=== PATIENT | female | born 1985 | race Caucasian/White ===

== ENCOUNTER 2017-06-14 13:52 | Inpatient (IN) | payer SELFPAY ==
[2017-06-14 15:01] LABS: ADD MAN DIFF? NO
[2017-06-14] MEDS: IV NORMAL SALINE 1000ML BAG 1,000 ML IV ×2 (15:03→19:28)
[2017-06-14] MEDS: ONDANSETRON PF 4 MG/2 ML VIAL. IV ×2 (15:04→21:04)
[2017-06-14] MEDS: fentaNYL PF VIAL 100 MCG/2 ML VIAL IV ×5 (15:04→19:28)
[2017-06-14 15:06] LABS: BASO % 0 % (0-3); EOS # 0.2 x10^3/uL (0.0-0.7); EOS % 2 % (0-3); HEMATOCRIT 45.6 % (36.0-47.0); HEMOGLOBIN 15.5 g/dL (12.0-15.5); LYMPH # 1.9 x10^3/uL (1.0-4.8); LYMPH % 16 % (24-48); MEAN CORPUSCULAR HEMOGLOBIN 29 pg (25-35); MEAN CORPUSCULAR HGB CONC 34 g/dL (31-37); MEAN CORPUSCULAR VOLUME 86 fL (79-100); MONO # 1.2 x10^3/uL (0.0-1.1); MONO % 10 % (0-9); NEUT # 8.7 x10^3uL (1.8-7.7); NEUT % 72 % (31-73); PLATELET COUNT 274 x10^3/uL (140-400); RED BLOOD COUNT 5.33 x10^6/uL (3.50-5.40); RED CELL DISTRIBUTION WIDTH 12.8 % (11.5-14.5)
[2017-06-14 15:13] LABS: ANION GAP 9 (6-14); BLOOD UREA NITROGEN 11 mg/dL (7-20); BUN/CREATININE RATIO 12 (6-20); CALCIUM 9.8 mg/dL (8.5-10.1); CARBON DIOXIDE 27 mmol/L (21-32); CHLORIDE 101 mmol/L (98-107); CREATININE 0.9 mg/dL (0.6-1.0); GFR 72.6; GLUCOSE 85 mg/dL (70-99); SODIUM 137 mmol/L (136-145)
[2017-06-14 15:19] LABS: ALBUMIN/GLOBULIN RATIO 0.9 (1.0-1.7); ALK PHOS 78 U/L (46-116); ALT (SGPT) 60 U/L (14-59); AST (SGOT) 25 U/L (15-37); LIPASE 69 U/L (73-393); TOTAL BILIRUBIN 2.3 mg/dL (0.2-1.0); TOTAL PROTEIN 8.5 g/dL (6.4-8.2)
[2017-06-14] MEDS: IOHEXOL 300 MG/ML 100ML VIAL. IV (15:32)
[2017-06-14] MEDS: PANTOPRAZOLE IV PUSH 40 MG VIAL. IVP (17:41)
[2017-06-14] MEDS ORDERED: DOCUSATE SODIUM 100 MG CAPSULE. PO (21:00)
[2017-06-14] MEDS ORDERED: SIMETHICONE 80 MG TAB.CHEW PO (21:00)
[2017-06-14] MEDS ORDERED: ALBUTEROL SULFATE 2.5 MG/3 ML NEBU. NEB (21:00)
[2017-06-14] MEDS: HYDROmorphone 2 MG/ML VIAL IV (21:04)
[2017-06-14] MEDS ORDERED: guaiFENesin DM 200MG/20MG 10 ML SYRUP PO (21:15)
[2017-06-14] MEDS ORDERED: KETOROLAC 15 MG/ML VIAL. IV (21:15)
[2017-06-14] MEDS: ALBUTEROL SULFATE 2.5 MG/3 ML NEBU. NEB (21:18)
[2017-06-14] MEDS: BUDESONIDE 0.5 MG/2 ML NEBU. NEB (21:30)
[2017-06-14] MEDS: diphenhydrAMINE 50 MG/ML VIAL IVP (21:30)
[2017-06-14] MEDS: POLYETHYLENE GLYCOL 3350 17 GM PACKET. PO (22:09)
[2017-06-14] MEDS: KETOROLAC 30 MG/ML INJ. IV (22:10)
[2017-06-14] MEDS: LIDOCAINE (700MG/PATCH) PATCH. TD (22:10)
[2017-06-14] MEDS: ACETAMINOPHEN 325 MG TABLET. PO (22:10)
[2017-06-14] MEDS ORDERED: CALCIUM CARBONATE 500 MG TAB.CHEW PO (22:30)
[2017-06-15] MEDS: fentaNYL PF VIAL 100 MCG/2 ML VIAL IV ×2 (00:26→09:03)
[2017-06-15] MEDS: DIPHENHYDRAMINE/ZINC ACETATE 2%/0.1% TOPICAL CREAM 28GM TUBE. TP ×3 (00:27→20:08)
[2017-06-15] MEDS: LIDO:MAALOX 1:1 20 ML SINGLE DOSE. SWSW (00:27)
[2017-06-15] MEDS: PANTOPRAZOLE IV PUSH 40 MG VIAL. IVP (00:27)
[2017-06-15] MEDS: IV NORMAL SALINE 1000ML BAG 1,000 ML IV ×2 (03:04→08:08)
[2017-06-15 05:18] LABS: ADD MAN DIFF? NO
[2017-06-15 05:28] LABS: BASO % 0 % (0-3); EOS # 0.2 x10^3/uL (0.0-0.7); EOS % 3 % (0-3); HEMATOCRIT 37.7 % (36.0-47.0); HEMOGLOBIN 12.9 g/dL (12.0-15.5); LYMPH # 2.2 x10^3/uL (1.0-4.8); LYMPH % 28 % (24-48); MEAN CORPUSCULAR HEMOGLOBIN 29 pg (25-35); MEAN CORPUSCULAR HGB CONC 34 g/dL (31-37); MEAN CORPUSCULAR VOLUME 85 fL (79-100); MONO # 0.9 x10^3/uL (0.0-1.1); MONO % 11 % (0-9); NEUT # 4.6 x10^3uL (1.8-7.7); NEUT % 58 % (31-73); PLATELET COUNT 220 x10^3/uL (140-400); RED BLOOD COUNT 4.43 x10^6/uL (3.50-5.40); RED CELL DISTRIBUTION WIDTH 13.1 % (11.5-14.5)
[2017-06-15 05:58] LABS: ALBUMIN 2.8 g/dL (3.4-5.0); ALBUMIN/GLOBULIN RATIO 0.8 (1.0-1.7); ALK PHOS 57 U/L (46-116); ALT (SGPT) 44 U/L (14-59); ANION GAP 7 (6-14); AST (SGOT) 20 U/L (15-37); BLOOD UREA NITROGEN 8 mg/dL (7-20); BUN/CREATININE RATIO 11 (6-20); CARBON DIOXIDE 26 mmol/L (21-32); CHLORIDE 106 mmol/L (98-107); CREATININE 0.7 mg/dL (0.6-1.0); GLUCOSE 95 mg/dL (70-99); POTASSIUM 3.8 mmol/L (3.5-5.1); SODIUM 139 mmol/L (136-145); TOTAL BILIRUBIN 1.9 mg/dL (0.2-1.0); TOTAL PROTEIN 6.4 g/dL (6.4-8.2)
[2017-06-15 05:59] LABS: CALCIUM 7.9 mg/dL (8.5-10.1)
[2017-06-15] MEDS: BUDESONIDE 0.5 MG/2 ML NEBU. NEB ×2 (08:00→19:47)
[2017-06-15] MEDS: ALBUTEROL SULFATE 2.5 MG/3 ML NEBU. NEB ×5 (08:00→19:47)
[2017-06-15] MEDS: PANTOPRAZOLE 40 MG TABLET.DR. PO (08:06)
[2017-06-15] MEDS: DOCUSATE SODIUM 100 MG CAPSULE. PO (08:06)
[2017-06-15] MEDS: SUCRALFATE 1 GM TABLET. PO (08:06)
[2017-06-15] MEDS: POLYETHYLENE GLYCOL 3350 17 GM PACKET. PO (08:07)
[2017-06-15] MEDS: LIDOCAINE (700MG/PATCH) PATCH. TD (08:07)
[2017-06-15] MEDS ORDERED: ACETAMINOPHEN 325 MG TABLET. PO (13:15)
[2017-06-15] MEDS: HYDROmorphone 2 MG/ML VIAL IV ×2 (13:34→20:03)
[2017-06-15] MEDS: ACETAMINOPHEN 325 MG TABLET. PO (13:34)
[2017-06-15] MEDS: ONDANSETRON PF 4 MG/2 ML VIAL. IV (13:39)
[2017-06-15 14:07] LABS: BILIRUBIN,URINE NEGATIVE (NEG); CLARITY,URINE CLEAR; COLOR,URINE YELLOW; GLUCOSE,URINE NEGATIVE (NEG); NITRITE,URINE NEGATIVE (NEG); PROTEIN,URINE NEGATIVE (NEG-TRACE)
[2017-06-15 14:15] LABS: BARBITURATES NEG (NEG); BENZODIAZEPINES NEG (NEG); CANNABINOIDS NEG (NEG); COCAINE NEG (NEG); METHADONE NEG (NEG); OPIATES NEG (NEG); PHENCYCLIDINE NEG (NEG)
[2017-06-15 14:18] LABS: AMPHETAMINE/METHAMPHETAMINE POS (NEG); ETHANOL, URINE NEG (NEG)
[2017-06-15 14:22] LABS: BACTERIA,URINE FEW /HPF (0-FEW); RBC,URINE 0 /HPF (0-2); SQUAMOUS EPITHELIAL CELL,UR MOD /LPF; WBC,URINE OCC /HPF (0-4)
[2017-06-15] MEDS: PATCH REMOVAL. MC (21:00)
[2017-06-16] MEDS: HYDROmorphone 2 MG/ML VIAL IV ×4 (03:00→19:22)
[2017-06-16] MEDS: ALBUTEROL SULFATE 2.5 MG/3 ML NEBU. NEB ×4 (07:36→20:00)
[2017-06-16] MEDS: BUDESONIDE 0.5 MG/2 ML NEBU. NEB ×2 (07:36→20:00)
[2017-06-16] MEDS: DIPHENHYDRAMINE/ZINC ACETATE 2%/0.1% TOPICAL CREAM 28GM TUBE. TP ×2 (08:05→21:00)
[2017-06-16] MEDS: PANTOPRAZOLE 40 MG TABLET.DR. PO (08:06)
[2017-06-16] MEDS: DOCUSATE SODIUM 100 MG CAPSULE. PO (08:06)
[2017-06-16] MEDS: LIDOCAINE (700MG/PATCH) PATCH. TD (08:06)
[2017-06-16] MEDS: KETOROLAC 15 MG/ML VIAL. IV ×2 (08:15→18:23)
[2017-06-16] MEDS: ONDANSETRON PF 4 MG/2 ML VIAL. IV ×2 (08:28→18:23)
[2017-06-16] MEDS ORDERED: HYDROcodone/APAP 5/325MG 1 TAB TABLET PO (11:30)
[2017-06-16] MEDS: POLYETHYLENE GLYCOL 3350 17 GM PACKET. PO (14:24)
[2017-06-16] MEDS: PATCH REMOVAL. MC (21:00)
[2017-06-17] MEDS: HYDROmorphone 2 MG/ML VIAL IV ×2 (03:46→08:41)
[2017-06-17 04:02] LABS: ADD MAN DIFF? NO
[2017-06-17 04:10] LABS: BASO % 0 % (0-3); EOS # 0.3 x10^3/uL (0.0-0.7); EOS % 4 % (0-3); HEMOGLOBIN 13.5 g/dL (12.0-15.5); LYMPH # 1.6 x10^3/uL (1.0-4.8); LYMPH % 21 % (24-48); MEAN CORPUSCULAR HEMOGLOBIN 30 pg (25-35); MEAN CORPUSCULAR HGB CONC 35 g/dL (31-37); MEAN CORPUSCULAR VOLUME 85 fL (79-100); MONO # 0.7 x10^3/uL (0.0-1.1); MONO % 9 % (0-9); NEUT # 4.9 x10^3uL (1.8-7.7); NEUT % 65 % (31-73); PLATELET COUNT 293 x10^3/uL (140-400); RED BLOOD COUNT 4.58 x10^6/uL (3.50-5.40); RED CELL DISTRIBUTION WIDTH 12.8 % (11.5-14.5); WHITE BLOOD COUNT 7.6 x10^3/uL (4.0-11.0)
[2017-06-17 04:28] LABS: ANION GAP 4 (6-14); BLOOD UREA NITROGEN 7 mg/dL (7-20); CALCIUM 8.8 mg/dL (8.5-10.1); CARBON DIOXIDE 28 mmol/L (21-32); CHLORIDE 104 mmol/L (98-107); CREATININE 0.7 mg/dL (0.6-1.0); GLUCOSE 113 mg/dL (70-99); POTASSIUM 4.4 mmol/L (3.5-5.1); SODIUM 136 mmol/L (136-145)
[2017-06-17] MEDS: BUDESONIDE 0.5 MG/2 ML NEBU. NEB ×2 (06:10→15:58)
[2017-06-17] MEDS: ALBUTEROL SULFATE 2.5 MG/3 ML NEBU. NEB ×3 (06:10→15:58)
[2017-06-17] MEDS: KETOROLAC 15 MG/ML VIAL. IV (08:03)
[2017-06-17] MEDS: PANTOPRAZOLE 40 MG TABLET.DR. PO (08:41)
[2017-06-17] MEDS ORDERED: MORPHINE SULFATE 4 MG/ML DISP.SYRIN. IV ×2 (10:30→10:45)
[2017-06-17] MEDS: POLYETHYLENE GLYCOL 3350 17 GM PACKET. PO (11:11)
[2017-06-17] MEDS: DOCUSATE SODIUM 100 MG CAPSULE. PO (11:11)
[2017-06-17] MEDS: DIPHENHYDRAMINE/ZINC ACETATE 2%/0.1% TOPICAL CREAM 28GM TUBE. TP (11:12)
[2017-06-17] MEDS: LIDOCAINE (700MG/PATCH) PATCH. TD (11:12)
[2017-06-17] MEDS: ONDANSETRON PF 4 MG/2 ML VIAL. IV (11:14)
[2017-06-17] MEDS: GABAPENTIN 300 MG CAPSULE. PO ×2 (13:29→13:31)
[2017-06-17] MEDS: oxyCODONE/APAP 5/325 1 TAB TABLET PO (13:29)
[2017-06-17 13:30] LABS: AMYLASE 59 U/L (25-115)
[2017-06-17 13:30] LABS: LIPASE 67 U/L (73-393)
[2017-06-17] MEDS: IOHEXOL 300 MG/ML 100ML VIAL. IV (13:30)
[2017-06-17] MEDS ORDERED: CONTRAST GIVEN MC (13:45)
[2017-06-17] MEDS ORDERED: predniSONE 10 MG TABLET PO (13:45)
[2017-06-17 14:41] LABS: TROPONINI < 0.017 ng/mL (0.000-0.055)
[2017-06-17] MEDS ORDERED: AMOXICILLIN/K CLAV 875/125MG TABLET. PO (21:00)
[2017-06-17] MEDS ORDERED: LACTOBACILLUS RHAMNOSUS GG 1 CAPSULE. PO (21:00)
== END 2017-06-17 15:45 | disposition home or self-care (01) | DRG 193 ==
LOC: ER 13:52 → 6 SOUTH 17:40
DX: R09.1 Pleurisy (principal); J18.9 Pneumonia, unspecified organism; J98.11 Atelectasis; M79.1 Myalgia; J90 Pleural effusion, not elsewhere classified; J45.909 Unspecified asthma, uncomplicated; J45.20 Mild intermittent asthma, uncomplicated; Z82.3 Family history of stroke; Z82.49 Family history of ischemic heart disease and other diseases of the circulatory system; Z83.3 Family history of diabetes mellitus; Z85.42 Personal history of malignant neoplasm of other parts of uterus; Z90.710 Acquired absence of both cervix and uterus
CPT/HCPCS: 36415; 71100; 71250; 74177; 80048; 80053; 80307; 81001; 82150; 83690; 84484; 85025; 86141; 86644; 86645; 86663; 86664; 94640; 94760; 96361; 96374; 96375; 96376; 99285-25; C9113; J1170; J1885; J2060; J2405; J3010; J7030; J7613; J7626; Q9967